=== PATIENT | male | born 1970 | race Caucasian/White ===

== ENCOUNTER 2024-02-01 04:10 | Emergency (ER) | payer BC ==
--- OUTSIDE RECORDS SUMMARY | 2024-02-01 04:13 | XMS REPORT | Continuity of Care Document ---
Author Name Unknown Address [address] [facility] [address] [place] [address] [facility] thconnect Address [address] [facility] [place] [address] Care Team Providers Care Machine Deburrer Name Role Phone Ayde ZULUAGA, Jessica Cardenas Primary Care Physician Matt Trivedi Attending Clinician Unavailable Cisco Attending Clinician Unavailtalya Gillespie Attending Clinician Unavail able Doctor Unassigned, [place] Attending Clinician U phil Fonseca MD, Jessica Cardenas Attending Clinician + [phone] Itz SCOTT, Hemalatha Shah Attending Clinician UnavailJESSICA Lott III Attending Clinician UnavailJESSICA Rodrigues Attending Clinician Alivia salgado Lab, [facility] Pob I Attending Clinician Michel Goss MD Attending Clinician [phone] Matt Trivedi Admitting Clinician Unavailable Cisco Admitting Clinician Corinne Gillespie Admitting Clinician Unavail able Payers Payer Name Policy Type Policy Number Effective Date Expirati on Date Source [place] [id number] 2020 00:00:00 Problems Condition Name Condition Details Condition Category Status Onset Date Resolution Date Last Treatment Date Treating Clinician Comments Source Disorder of shoulder Disorder of Shoulder Problem Active 2022-05 00:00: 00 [facility] Anterior to posterior tear of superior glenoid labrum of right shoulder Anterior to Posterior Tear of Superior Glenoid Labrum of Right Shoulder Problem Active 2022-05 00:00: 00 [facility] Pain of right shoulder joint Pain of Right Shoulder Joint Problem Active 2022-05 00:00: 00 [facility] Arthritis of right acromiocla vicular joint Arthritis of Right Acromiocla vicular Joint Problem Active 2022-05 00:00: 00 [facility] Essential hypertensi on Essential hypertensi on Disease Active 07-13 00:00: 00 [facility] Allergies, Adverse Reactions, Alerts Allergy Name Allergy Type Status Severity Reaction(s) Onset Date Inactive Date Treating Clinician Comments Source No Known Drug Allergie s DA Active U 2022-05 00:00: 00 [facility] NO KNOWN ALLERGIE S Drug Class Active [facility] Social History Social Habit Start Date Stop Date Quantity Comments Source History SDOH Alcohol Frequency [facility] History SDOH Alcohol Std Drinks [facility] Exposure to SARS-CoV-2 (event) Not sure [facility] History SDOH Alcohol Binge [facility] History of tobacco use Cigarette Smoker [facility] Alcohol intake 2020-04-09 00:00:00 2020-04-09 00:00:00 .86 /d [facility] Cigarettes smoked current (pack per day) - Reported 2016-07-13 00:00:00 2016-07-13 00:00:00 [facility] Tobacco use and exposure 2016-07-13 00:00:00 2016-07-13 00:00:00 Smokeless tobacco non-user [facility] Alcohol Comment 2016-07-13 00:00:00 2016-07-13 00:00:00 occ [facility] Sex Assigned At 1970 00:00:00 1970 00:00:00 [facility] Smoking Status Start Date Stop Date Source Former Smoker [facility] Smokes tobacco daily 2016-07-13 00:00:00 [facility] Medications Ordered Medication Name Filled Medication Name Start Date Stop Date Current Medication? Ordering Clinician Indication Dosage Frequency Signature (SIG) Comments Components Source benazepriL 40 mg tablet 06-16 00:00: 00 Yes [id number] 40mg Take 1 tablet by mouth in the morning. [facility] sildenafiL (VIAGRA) 100 mg tablet 06-27 00:00: 00 Yes [id number] 100mg Take 1 tablet by mouth as needed (take one hour prior to sexual acitivity prn). [facility] sildenafiL (VIAGRA) 100 mg tablet 2019-05 00:00: 00 06-27 00:00 :00 No [id number] 100mg Take 1 tablet by mouth as needed (take one hour prior to sexual acitivity prn). [facility] alprazolam 0.5 mg tablet TAKE ONE (1) TABLET(S) BY MOUTH ONCE A DAY NEEDED. alprazolam 0.5 mg tablet TAKE ONE (1) TABLET(S) BY MOUTH ONCE A DAY NEEDED. No alprazolam 0.5 mg tablet TAKE ONE (1) TABLET(S) BY MOUTH ONCE A DAY NEEDED. [facility] amlodipine 5 mg-benazepr il 40 mg capsule TAKE ONE (1) CAPSULE(S) BY MOUTH DAILY. amlodipine 5 mg-benazepr il 40 mg capsule TAKE ONE (1) CAPSULE(S) BY MOUTH DAILY. No amlodipine 5 mg-benazep ril 40 mg capsule TAKE ONE (1) CAPSULE(S) BY MOUTH DAILY. [facility] meloxicam 15 mg tablet TAKE ONE (1) TABLET(S) BY MOUTH DAILY IN THE MORNING. meloxicam 15 mg tablet TAKE ONE (1) TABLET(S) BY MOUTH DAILY IN THE MORNING. No meloxicam 15 mg tablet TAKE ONE (1) TABLET(S) BY MOUTH DAILY IN THE MORNING. [facility] metformin 500 mg tablet TAKE ONE (1) TABLET(S) BY MOUTH TWICE A DAY. metformin 500 mg tablet TAKE ONE (1) TABLET(S) BY MOUTH TWICE A DAY. No metformin 500 mg tablet TAKE ONE (1) TABLET(S) BY MOUTH TWICE A DAY. [facility] Ozempic 2 mg/dose (8 mg/3 mL) subcutaneou s pen injector INJECT TWO (2) MG SUBCUTANEOU SLY WEEKLY. Ozempic 2 mg/dose (8 mg/3 mL) subcutaneou s pen injector INJECT TWO (2) MG SUBCUTANEOU SLY WEEKLY. No Ozempic 2 mg/dose (8 mg/3 mL) subcutaneo us pen injector INJECT TWO (2) MG SUBCUTANEO USLY WEEKLY. [facility] sildenafil 50 mg tablet TAKE ONE (1) TABLET(S) BY MOUTH ONCE A DAY 30 MINUTES PRIOR TO ACTIVITY. sildenafil 50 mg tablet TAKE ONE (1) TABLET(S) BY MOUTH ONCE A DAY 30 MINUTES PRIOR TO ACTIVITY. No sildenafil 50 mg tablet TAKE ONE (1) TABLET(S) BY MOUTH ONCE A DAY 30 MINUTES PRIOR TO ACTIVITY. [facility] tizanidine 4 mg tablet TAKE ONE (1) TABLET(S) BY MOUTH AT BEDTIME NEEDED. tizanidine 4 mg tablet TAKE ONE (1) TABLET(S) BY MOUTH AT BEDTIME NEEDED. No tizanidine 4 mg tablet TAKE ONE (1) TABLET(S) BY MOUTH AT BEDTIME NEEDED. [facility] alprazolam 0.5 mg tablet TAKE ONE (1) TABLET(S) BY MOUTH ONCE A DAY NEEDED. alprazolam 0.5 mg tablet TAKE ONE (1) TABLET(S) BY MOUTH ONCE A DAY NEEDED. No alprazolam 0.5 mg tablet TAKE ONE (1) TABLET(S) BY MOUTH ONCE A DAY NEEDED. [facility] amlodipine 5 mg-benazepr il 40 mg capsule TAKE ONE (1) CAPSULE(S) BY MOUTH DAILY. amlodipine 5 mg-benazepr il 40 mg capsule TAKE ONE (1) CAPSULE(S) BY MOUTH DAILY. No amlodipine 5 mg-benazep ril 40 mg capsule TAKE ONE (1) CAPSULE(S) BY MOUTH DAILY. [facility] ketorolac 10 mg tablet TAKE ONE (1) TABLET(S) BY MOUTH EVERY 6 HOURS. ketorolac 10 mg tablet TAKE ONE (1) TABLET(S) BY MOUTH EVERY 6 HOURS. No ketorolac 10 mg tablet TAKE ONE (1) TABLET(S) BY MOUTH EVERY 6 HOURS. [facility] meloxicam 15 mg tablet TAKE ONE (1) TABLET(S) BY MOUTH DAILY IN THE MORNING. meloxicam 15 mg tablet TAKE ONE (1) TABLET(S) BY MOUTH DAILY IN THE MORNING. No meloxicam 15 mg tablet TAKE ONE (1) TABLET(S) BY MOUTH DAILY IN THE MORNING. [facility] metformin 500 mg tablet TAKE ONE (1) TABLET(S) BY MOUTH TWICE A DAY. metformin 500 mg tablet TAKE ONE (1) TABLET(S) BY MOUTH TWICE A DAY. No metformin 500 mg tablet TAKE ONE (1) TABLET(S) BY MOUTH TWICE A DAY. [facility] Ozempic 2 mg/dose (8 mg/3 mL) subcutaneou s pen injector INJECT TWO (2) MG SUBCUTANEOU SLY WEEKLY. Ozempic 2 mg/dose (8 mg/3 mL) subcutaneou s pen injector INJECT TWO (2) MG SUBCUTANEOU SLY WEEKLY. No Ozempic 2 mg/dose (8 mg/3 mL) subcutaneo us pen injector INJECT TWO (2) MG SUBCUTANEO USLY WEEKLY. [facility] promethazin e 25 mg tablet TAKE ONE (1) TABLET(S) BY MOUTH EVERY 6-8 HOURS NEEDED FOR NAUSEA AND VOMITING. promethazin e 25 mg tablet TAKE ONE (1) TABLET(S) BY MOUTH EVERY 6-8 HOURS NEEDED FOR NAUSEA AND VOMITING. No promethazi ne 25 mg tablet TAKE ONE (1) TABLET(S) BY MOUTH EVERY 6-8 HOURS NEEDED FOR NAUSEA AND VOMITING. [facility] sildenafil 50 mg tablet TAKE ONE (1) TABLET(S) BY MOUTH ONCE A DAY 30 MINUTES PRIOR TO ACTIVITY. sildenafil 50 mg tablet TAKE ONE (1) TABLET(S) BY MOUTH ONCE A DAY 30 MINUTES PRIOR TO ACTIVITY. No sildenafil 50 mg tablet TAKE ONE (1) TABLET(S) BY MOUTH ONCE A DAY 30 MINUTES PRIOR TO ACTIVITY. [facility] tizanidine 4 mg tablet TAKE ONE (1) TABLET(S) BY MOUTH EVERY 8 HOURS NEEDED FOR MUSCLE SPASMS. tizanidine 4 mg tablet TAKE ONE (1) TABLET(S) BY MOUTH EVERY 8 HOURS NEEDED FOR MUSCLE SPASMS. No tizanidine 4 mg tablet TAKE ONE (1) TABLET(S) BY MOUTH EVERY 8 HOURS NEEDED FOR MUSCLE SPASMS. [facility] tramadol 37.5 mg-acetamin ophen 325 mg tablet TAKE ONE (1) TABLET BY MOUTH EVERY 4-6 HOURS NEEDED FOR PAIN. tramadol 37.5 mg-acetamin ophen 325 mg tablet TAKE ONE (1) TABLET BY MOUTH EVERY 4-6 HOURS NEEDED FOR PAIN. No tramadol 37.5 mg-acetami nophen 325 mg tablet TAKE ONE (1) TABLET BY MOUTH EVERY 4-6 HOURS NEEDED FOR PAIN. [facility] alprazolam 0.5 mg tablet TAKE ONE (1) TABLET(S) BY MOUTH ONCE A DAY NEEDED. alprazolam 0.5 mg tablet TAKE ONE (1) TABLET(S) BY MOUTH ONCE A DAY NEEDED. No alprazolam 0.5 mg tablet TAKE ONE (1) TABLET(S) BY MOUTH ONCE A DAY NEEDED. [facility] amlodipine 5 mg-benazepr il 40 mg capsule TAKE ONE (1) CAPSULE(S) BY MOUTH DAILY. amlodipine 5 mg-benazepr il 40 mg capsule TAKE ONE (1) CAPSULE(S) BY MOUTH DAILY. No amlodipine 5 mg-benazep ril 40 mg capsule TAKE ONE (1) CAPSULE(S) BY MOUTH DAILY. [facility] ketorolac 10 mg tablet TAKE ONE (1) TABLET(S) BY MOUTH EVERY 6 HOURS. ketorolac 10 mg tablet TAKE ONE (1) TABLET(S) BY MOUTH EVERY 6 HOURS. No ketorolac 10 mg tablet TAKE ONE (1) TABLET(S) BY MOUTH EVERY 6 HOURS. [facility] meloxicam 15 mg tablet TAKE ONE (1) TABLET(S) BY MOUTH DAILY IN THE MORNING. meloxicam 15 mg tablet TAKE ONE (1) TABLET(S) BY MOUTH DAILY IN THE MORNING. No meloxicam 15 mg tablet TAKE ONE (1) TABLET(S) BY MOUTH DAILY IN THE MORNING. [facility] metformin 500 mg tablet TAKE ONE (1) TABLET(S) BY MOUTH TWICE A DAY. metformin 500 mg tablet TAKE ONE (1) TABLET(S) BY MOUTH TWICE A DAY. No metformin 500 mg tablet TAKE ONE (1) TABLET(S) BY MOUTH TWICE A DAY. [facility] Ozempic 2 mg/dose (8 mg/3 mL) subcutaneou s pen injector INJECT TWO (2) MG SUBCUTANEOU SLY WEEKLY. Ozempic 2 mg/dose (8 mg/3 mL) subcutaneou s pen injector INJECT TWO (2) MG SUBCUTANEOU SLY WEEKLY. No Ozempic 2 mg/dose (8 mg/3 mL) subcutaneo us pen injector INJECT TWO (2) MG SUBCUTANEO USLY WEEKLY. [facility] promethazin e 25 mg tablet TAKE ONE (1) TABLET(S) BY MOUTH EVERY 6-8 HOURS NEEDED FOR NAUSEA AND VOMITING. promethazin e 25 mg tablet TAKE ONE (1) TABLET(S) BY MOUTH EVERY 6-8 HOURS NEEDED FOR NAUSEA AND VOMITING. No promethazi ne 25 mg tablet TAKE ONE (1) TABLET(S) BY MOUTH EVERY 6-8 HOURS NEEDED FOR NAUSEA AND VOMITING. [facility] sildenafil 50 mg tablet TAKE ONE (1) TABLET(S) BY MOUTH ONCE A DAY 30 MINUTES PRIOR TO ACTIVITY. sildenafil 50 mg tablet TAKE ONE (1) TABLET(S) BY MOUTH ONCE A DAY 30 MINUTES PRIOR TO ACTIVITY. No sildenafil 50 mg tablet TAKE ONE (1) TABLET(S) BY MOUTH ONCE A DAY 30 MINUTES PRIOR TO ACTIVITY. [facility] tizanidine 4 mg tablet TAKE ONE (1) TABLET(S) BY MOUTH EVERY 8 HOURS NEEDED FOR MUSCLE SPASMS. tizanidine 4 mg tablet TAKE ONE (1) TABLET(S) BY MOUTH EVERY 8 HOURS NEEDED FOR MUSCLE SPASMS. No tizanidine 4 mg tablet TAKE ONE (1) TABLET(S) BY MOUTH EVERY 8 HOURS NEEDED FOR MUSCLE SPASMS. [facility] tramadol 37.5 mg-acetamin ophen 325 mg tablet TAKE ONE (1) TABLET BY MOUTH EVERY 4-6 HOURS NEEDED FOR PAIN. tramadol 37.5 mg-acetamin ophen 325 mg tablet TAKE ONE (1) TABLET BY MOUTH EVERY 4-6 HOURS NEEDED FOR PAIN. No tramadol 37.5 mg-acetami nophen 325 mg tablet TAKE ONE (1) TABLET BY MOUTH EVERY 4-6 HOURS NEEDED FOR PAIN. [facility] Vital Signs Vital Name Observation Time Observation Value Comments S ource Height 2023-05-06 00:00:00 [facility] BMI (Body Mass Index) 2023-05-06 00:00:00 33.8 kg/m2 [facility] Body Weight 2023-05-06 00:00:00 242 [lb_av] [facility] Height 2023-04-08 00:00:00 71 [in_i] [facility] BMI (Body Mass Index) 2023-04-08 00:00:00 33.8 kg/m2 [facility] Body Weight 2023-04-08 00:00:00 242 [lb_av] [facility] Systolic blood pressure 2021-06-27 19:47:00 121 mm[Hg] [facility] Diastolic blood pressure 2021-06-27 19:47:00 86 mm[Hg] [facility] Heart rate 2021-06-27 19:47:00 83 /min [facility] Body height 2021-06-27 19:47:00 180.3 cm [facility] Body weight 2021-06-27 19:47:00 118.842 kg [facility] BMI 2021-06-27 19:47:00 36.54 kg/m2 [facility] Procedures Procedure Date / Time Performed Performing Clinician Source XR, shoulder, 1 view 2023-03-26 00:00:00 [facility] MRI, shoulder, w/o contrast 2023-03-26 00:00:00 [facility] EXTERNAL PROVIDER RECORDS 2022-11-24 05:01:00 Doctor Unassigned, [place] [facility] Colonoscopy 2022-10-20 00:00:00 [facility] Elbow Surgery [facility] Tonsillectomy [facility] Encounters Start Date/Time End Date/Time Encounter Type Admission Type Attending [facility] Care Department Encounter ID Source 2023-06-02 00:00:00 2023-06-02 00:00:00 Matt Trivedi MD: [address] [place] [address] , Ph. [phone] [facility] [place] [facility] [place] [id number] [facility] 2023-05-06 00:00:00 2023-05-06 00:00:00 Matt Trivedi MD: [address] [place] [address] , Ph. [phone] [facility] [place] [facility] [place] [id number] [facility] 2023-04-29 07:28:00 2023-04-29 07:28:00 Outpatient Matt Gonzalez [facility] [id number] [facility] 2023-04-26 00:00:00 2023-04-26 00:00:00 Outpatient NORIS_Sammy Negron AO AO [id number] [facility] 2023-04-26 00:00:00 2023-04-26 00:00:00 Outpatient NORIS_Sammy Negron AO AO [id number] [facility] 2023-04-26 00:00:00 2023-04-26 00:00:00 Outpatient FOG_Sammy Negron AO AO [id number] [facility] 2023-04-26 00:00:00 2023-04-26 00:00:00 Outpatient NORIS_Sammy Negron AO AO [id number] [facility] 2023-04-12 00:00:00 2023-04-12 00:00:00 Outpatient FOG_Sammy Negron [facility] AO [id number] [facility] 2023-04-08 00:00:00 2023-04-08 00:00:00 Outpatient FOG_Sammy Negron [facility] AO [id number] [facility] 2023-04-08 00:00:00 2023-04-08 00:00:00 Matt Trivedi MD: [address] [place] [address] , Ph. [phone] [facility] [place] [facility] [place] [id number] [facility] 2023-03-26 00:00:00 2023-03-26 00:00:00 Outpatient FOG_Sammy Negron [facility] AO [id number] [facility] 2023-03-26 00:00:00 2023-03-26 00:00:00 Matt Trivedi MD: [address] [place] [address] , Ph. [phone] [facility] [place] [facility] [place] [id number] [facility] 2023-03-25 00:00:00 2023-03-25 00:00:00 Outpatient FOG_Sammy Negron [facility] AO [id number] [facility] 2023-03-17 00:00:00 2023-03-17 00:00:00 Outpatient FOG_Mehlhof Winston [facility] AO [id number] [facility] 2023-03-17 00:00:00 2023-03-17 00:00:00 Outpatient FOG_Mehlhof Winston [facility] AO [id number] [facility] 2022-11-24 00:00:00 2022-11-24 00:00:00 Orders Only Doctor Unassigned, [place] [facility] [id number] 350.1.13.10 4.2.7.2.686 [id number] [facility] 2022-06-14 00:00:00 2022-06-14 00:00:00 Telephone Jessica Fonseca [facility] ILYA?HEIKETalya [facility] [id number] 350.1.13.10 4.2.7.2.686 [id number] [facility] 2022-01-06 00:00:00 2022-01-06 00:00:00 Refill Ayde [facility] ILYA?HEIKETalya [facility] [id number] 350.1.13.10 4.2.7.2.686 [id number] [facility] 2021-12-01 00:00:00 2021-12-01 00:00:00 Refill Ayde [facility] ILYA?[place] [facility] OFF[facility] BUILD[facility] [id number] 350.1.13.10 4.2.7.2.686 [id number] [facility] 2021-07-27 00:00:00 2021-07-27 00:00:00 Telephone Hemalatha Mobley [facility] 1.2.840.114 350.1.13.10 4.2.7.2.686 [id number] [facility] 2021-07-26 13:00:00 2021-07-26 13:27:42 Outpatient Madiha MUHAMMAD III [facility] [id number] [facility] 2021-07-18 00:00:00 2021-07-18 00:00:00 Refill Ayde [facility] 1.840.114 350.1.13.10 4.2.7.2.686 [id number] [facility] 2021-07-16 00:00:00 2021-07-16 00:00:00 Refill Jessica Fonseca [facility] ILYA?[facility] 1.840.114 350.1.13.10 4.2.7.2.686 [id number] [facility] 2021-07-02 07:30:00 2021-07-02 07:30:00 Outpatient JESSICA OMALLEY [facility] [id number] [facility] 2021-06-27 13:15:00 2021-06-27 13:30:00 Office Visit Ayde [facility] OFFICE BUILDING 1.840.114 350.1.13.10 4.2.7.2.686 [id number] [facility] 2021-06-27 13:15:00 2021-06-27 13:15:00 Outpatient JESSICA OMALLEY [facility] [id number] [facility] 2021-06-27 00:00:00 2021-06-27 00:00:00 Orders Only Doctor Unassigned, [place] [facility] 1.84.114 350.1.13.10 4.2.7.2.686 [id number] [facility] 2021-06-17 00:00:00 2021-06-17 00:00:00 Refill Jessica Fonseca [facility] MARTINA [facility] OFFICE BUILDING ONE 1.84.114 350.1.13.10 4.2.7.2.686 [id number] [facility] 2021-06-16 00:00:00 2021-06-16 00:00:00 RefJessica Tsai [facility] OFFICE BUILDING ONE 1.2840.114 350.1.13.10 4.2.7.2.686 [id number] [facility] 2021-05-19 00:00:00 2021-05-19 00:00:00 Sreekanthleslie Ayde [facility] OFFICE BUILDING ONE 1.2840.114 350.1.13.10 4.2.7.2.686 [id number] [facility] 2021-05-12 00:00:00 2021-05-12 00:00:00 Damon Ayde [facility] OFFICE BUILDING ONE 1.2840.114 350.1.13.10 4.2.7.2.686 [id number] [facility] 2021-02-18 00:00:00 2021-02-18 00:00:00 Damon Machoricciluis [facility] Office Building One 1.840.114 350.1.13.10 4.2.7.2.686 [id number] [facility] 2021-01-22 00:00:00 2021-01-22 00:00:00 Damon Fonseca [facility] Office Building One 1.2840.114 350.1.13.10 4.2.7.2.686 [id number] [facility] 2020-10-22 08:00:00 2020-10-22 08:00:00 JESSICA Cowart [facility] [id number] [facility] 2020-10-15 00:00:00 2020-10-15 00:00:00 Damon Fonseca [facility] Office Building One 1.84.114 350.1.13.10 4.2.7.2.686 [id number] [facility] 2020-04-09 12:59:03 2020-04-09 13:14:03 Office Visit Ayde [facility] Office Building One 1.114 350.1.13.10 4.2.7.2.686 [id number] [facility] 2020-04-09 13:00:00 2020-04-09 13:00:00 Outpatient R JESSICA FONSECA [facility] [id number] [facility] 2020-03-14 08:17:24 2020-03-14 08:37:24 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 350.1.13.10 4.2.7.2.686 [id number] [facility] 2020-03-14 08:20:00 2020-03-14 08:20:00 Outpatient R [facility] [id number] [facility] 2020-03-12 14:10:02 2020-03-12 14:40:02 Office Visit Jessica Fonseca [facility] Office Building One .114 350.1.13.10 4.2.7.2.686 [id number] [facility] 2020-03-12 14:30:00 2020-03-12 14:30:00 Outpatient R JESSICA FONSECA [facility] [id number] [facility] 2020-03-12 00:00:00 2020-03-12 00:00:00 Letter (Out) Doctor Unassigned, [place] [facility] 1.114 350.1.13.10 4.2.7.2.686 [id number] [facility] 2019-12-11 00:00:00 2019-12-11 00:00:00 Refill Jessica Fonseca [facility] Office Building One 1.2.840.114 350.1.13.10 4.2.7.2.686 [id number] [facility] 2019-11-29 00:00:00 2019-11-29 00:00:00 Refill Jessica Fonseca [facility] Office Building One 1.2.840.114 350.1.13.10 4.2.7.2.686 [id number] [facility] 2019-01-19 00:00:00 2019-01-19 00:00:00 Michel Edge [facility] Office Building One 1.2.840.114 350.1.13.10 4.2.7.2.686 [id number] [facility] Results Test Description Test Time Test Comments Results Result Co mments Source Notes Date/Time Note Provider Source 2023-04-29 11:33:00 [id number] [place] [address] PATIENT NAME: DIONE DAWSON ADMIT DATE: 04/29/23 ACCOUNT NO: [id number] ROOM NO: AGE: 53 REPORT TYPE: OPERATIVE REPORT SEX: M ADMITTING PHYSICIAN: ATTENDING PHYSICIAN:Matt Trivedi MD OPERATION DATE: 04/29/2023 PREOPERATIVE DIAGNOSIS: 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 OTHER DIAGNOSIS NOTED: Partial thickness articular surface tear, supraspinatus tendon. OPERATIVE PROCEDURES PERFORMED: 1. Right shoulder diagnostic arthroscopy with an arthroscopic subacromial decompression, 45148. 2. Arthroscopic distal clavicle resection, 47494. 3. Arthroscopic debridement, 01744. ANESTHESIA: General. ESTIMATED BLOOD LOSS: None. SURGEON: Matt Trivedi M.D. [place] ATTENDANT: Maksymowski, OPA/LSA. OPERATIVE FINDINGS: As above. SURGICAL SPECIMENS SENT: None. CLINICAL INDICATIONS: Mr. Dawson is a 53-year-old male from [place], [place], who has been having chronic and progressive pain involving his right shoulder for the past several months. Pain is currently awakens him at night. Pain is not abated despite nonoperative treatment. Due to his progressive disability and lack of response to nonoperative treatment, he is admitted for arthroscopic decompression, distal clavicular resection and debridement. OPERATIVE NARRATIVE: 1. RIGHT SHOULDER DIAGNOSTIC ARTHROSCOPY WITH AN ARTHROSCOPIC SUBACROMIAL DECOMPRESSION, 85097. 2. ARTHROSCOPIC DISTAL CLAVICLE RESECTION, 38060. 3. ARTHROSCOPIC DEBRIDEMENT, 19867. PATIENT NAME: DIONE DAWSON PROCEDURE IN DETAIL: Mr. Dawson was brought to the operative suite at which time he was placed in a supine position on the OR table. Routine monitors were established. General anesthesia was delivered. After satisfactory induction of general anesthesia, the patient was placed in a semi-Lindsay position per Mr. London and the right shoulder was circumferentially prepped and draped in the usual sterile fashion per Mr. London. Posterior arthroscopic portal was established. Systematic intra-articular evaluation performed. Glenohumeral evaluation revealed a type 1 labral tear. Anterior inferior portal was established. Debridement was performed. Bicipital tendon was intact. Axillary recess unremarkable. Posterior labrum unremarkable. Subscapularis tendon was intact. Partial thickness tear involving the articular surface of the supraspinatus tendon was present. Less than 10% of the tendon debridement was performed. The arthroscope was then placed in subacromial space, type 2 acromion was noted. CA ligament released. Anterior inferior acromioplasty was performed. The distal 10 mm of the clavicle were then resected. A complete bursectomy was performed. No bursal lesions of the cuff were present. Thorough lavage was performed with lactated Ringer solution. Arthroscopic portals were closed respectively with a 4-0 nylon suture per Mr. London. Subacromial injection performed by Mr. London. Sterile dressing was applied by Mr. London. Mr. Dawson was then extubated, taken to recovery room awake and alert without any anesthetic or operative complications. At the end of the case, sponge and needle counts were correct x2. During the procedure, Mr. London was invaluable in positioning the patient along with preparation and draping of the extremity. He was also vital for providing surgical exposure throughout the procedure in addition to closure of the postoperative incisions, postoperative anesthetic injection and application of postoperative dressing. Dictated By: Matt Trivedi MD Date Dictated: 04/29/2023 11:33:50 Date Transcribed: 04/29/2023 11:58:25 RLB/KEIRY Receipt ID: [id number] Authenticated by Matt Trivedi MD On 04/29/2023 12:16:08 PM at 1216 PATIENT NAME: DIONE DAWSON [facility] 2023-04-29 06:14:00 [facility] Brief Op Note REPORT#:[id number] REPORT STATUS: Signed REPORT INITIALIZATION DATE:04/29/23 TIME: 613 PATIENT: DIONE DAWSON UNIT #: [id number] ROOM/BED: : 72 AGE: 53 SEX: M ATTEND: Matt Trivedi MD ADM AUTHOR: Yesenia De Los Santos REPT SERVICE DT/TIME: 04/29/23613 * ALL edits or amendments must be made on the electronic/computer document * Op/Inv Proc Note - Brief Pre-procedure diagnosis: Right shoulder labral tear, chronic impingement and AC joint arthritis Post-procedure diagnosis: same as pre procedure dx Procedures performed: Right Shoulder arthroscopy, subacromial decompression, distal clavicle resection and debridement Primary Surgeon: Farooq Donor Relations Manager(s): Surya LSA Findings: as above Complications: none Estimated blood loss in ml's: none Specimens removed/altered: none at 1215 at 1540 RPT #:[id number] END OF REPORT [facility] 2023-04-28 11:46:00 [id number] [id number] PATIENT NAME: DIONE DAWSON ADMIT DATE: ACCOUNT NO: [id number] ROOM NO: AGE: 53 REPORT TYPE: HISTORY AND PHYSICAL SEX: M ADMITTING PHYSICIAN: ATTENDING PHYSICIAN:Matt Trivedi MD ADMISSION DATE: 04/29/2023 00:00:00 ADMITTING DIAGNOSIS: 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 HISTORY OF PRESENT ILLNESS: Mr. Dawson is a 53-year-old male who has been having progressive pain in his right shoulder for the past several months. The pain awakens him at night. The pain interferes with daily activities. His clinical as well as radiographic evaluation revealed stage III impingement, AC arthritis as well as a degenerative labral tear. Due to his progressive disability and lack of response to nonoperative intervention, he is admitted for arthroscopic decompression, distal clavicular resection and debridement. PAST MEDICAL HISTORY: Anxiety, diabetes, hypertension. PAST SURGICAL HISTORY: Include elbow surgery, tonsillectomy. FAMILY HISTORY: Hypertension, carcinoma. SOCIAL HISTORY: He is a former smoker. He drinks occasionally. ALLERGIES: NO ALLERGIES ARE LISTED. MEDICATIONS: Alprazolam, amlodipine, metformin. REVIEW OF SYSTEMS: Negative. PHYSICAL EXAMINATION: VITAL SIGNS: A 5 feet 11 inches tall, 109.7 kg. HEENT: Within normal limits. CARDIAC: Regular rate and rhythm. No murmur. CHEST: Clear. ABDOMEN: Benign. BACK: No CVA tenderness. MUSCULOSKELETAL: Cervical spine is unremarkable. Examination of the right shoulder demonstrates positive arc of impingement, positive crossover test, positive clunk test. No instability. No weakness. Distal neurovascular status is intact. DIAGNOSTIC DATA: Radiographic evaluation reveals a type 2 acromion with significant AC arthritis. MRI evaluation reveals impingement with AC arthropathy and a prominent labral tear with an associated paralabral cyst. PATIENT NAME: DIONE DAWSON ASSESSMENT: Right shoulder pain secondary to stage III impingement, acromioclavicular arthropathy and degenerative labral tearing. SURGICAL PLAN: Diagnostic arthroscopy, decompression, distal clavicular resection, and debridement. I have gone over at length with the patient the associated risks involved with this procedure. He understands that these include but not limited to bleeding, infection, neurovascular damage, persistent pain, loss of motion, need for further operative intervention along with complications secondary to anesthesia. Furthermore, he understands that there are no guarantees or warranties that he will be pain free as a result of the procedure. He accepts these risks and gives his informed consent to proceed. Dictated By: Matt Trivedi MD Date Dictated: 04/28/2023 11:46:30 Date Transcribed: 04/28/2023 11:57:42 FLAVIO/BRITNEY/PAM Receipt ID: [id number] Authenticated by Matt Trivedi MD On 04/29/2023 06:03:57 AM at 0603 PATIENT NAME: DIONE DAWSON [facility]
[2024-02-01 04:51] LABS: PT Prothrombin Time 12.1 SECONDS (9.4-12.5); Protime INR 1.08
[2024-02-01 04:52] LABS: Absolute Eosinophils 0.5 K/uL (0-0.5); Absolute Lymphocytes (CBC) 2.5 K/uL (0.7-4.9); Absolute Monocytes 0.5 K/uL (0.1-1.3); Basophils % 0.5 % (0-1.3); Eosinophils % 7.2 % (0-4.4); Hematocrit 43.3 % (39.6-49.0); Hemoglobin 14.7 g/dL (13.6-17.9); Lymphocytes % 38.5 % (15.3-44.8); MCH 31.2 pg (27.0-35.0); MCV 91.7 fL (80-100); MPV 8.1 fL (7.6-11.3); Monocytes % 7.6 % (3.3-12.3); Neutrophils % 46.2 % (41.7-73.7); Nucleated Red Blood Cells % 0.1 % (0-0); Platelets 225 thou/uL (152-406); RBC Red Blood Cell Count 4.72 M/uL (4.33-5.43); Red Cell Distribution Width 13.2 % (12.1-15.2)
[2024-02-01 05:03] LABS: Anion Gap 6.9 mEq/L (5.0-15.0); Potassium 3.9 mEq/L (3.5-5.1); Troponin High Sensitivity 4.8 pg/mL (<58.9)
--- NOTE | 2024-02-01 06:05 | EDPHYS ---
Physician Documentation [facility] Name: Trevor Palomares III Age: 54 yrs Sex: Male : 1970 Arrival Date: 02/01/2024 Time: 04:10 Bed 5 Private MD: ED Physician Adan Huertas HPI: 01/31 04:30 This 54 yrs old Male presents to ER via Ambulatory with complaints of High ec2 Blood Pressure, Dizziness. 04:30 Patient arrives today for evaluation of intermittent dizziness ongoing for the past ec2 several days. Patient reports dizziness is described as a room spinning sensation. Patient reports no chest pain or difficulty breathing. States that he checked his blood pressure and noted that it was also elevated. No vomiting, no diarrhea, no recent illnesses. History of hypertension. No history of ACS, no history of stroke. Historical: - Allergies: 04:21 No Known Allergies; al5 - PMHx: 04:21 Diabetes mellitus; Hypertensive disorder; al5 - PSHx: 04:21 Tonsillectomy; elbow surgery L; al5 - Immunization history:: Adult Immunizations up to date. - Infectious Disease History:: Denies. - Social history:: Smoking status: Reported history of juuling and/or vaping. ROS: 04:30 Constitutional: as per hpi ec2 Exam: 04:23 ECG was reviewed by the Attending Physician. ec2 04:30 Constitutional: GEN: NAD Head: atraumatic Eyes: EOMI Ears: External ears are ec2 normal. CV: regular rate LUNGS: no respiratory distress ABD: non-distended SKIN: no evidence of rashes MSK: no evidence of trauma. Neuro: Cranial nerves II through XII intact, strength intact all 4 extremities, no pronator drift, normal [id number]. Vital Signs: 04:19 BP 153 / 104; Pulse 64; Resp 18; Temp 98.2; Pulse Ox 98% on R/A; Weight 99.79 kg; al5 Height 5 ft. 11 in. ; Pain 0/10; 05:29 BP 143 / 91; Pulse 59; Resp 17; Temp 98.2; Pulse Ox 100% on R/A; Pain 0/10; bm8 06:12 BP 140 / 91; Pulse 61; Resp 17; Temp 98.2; Pulse Ox 100% ; Pain 0/10; bm8 04:19 Body Mass Index 30.68 (99.79 kg, 180.34 cm) al5 04:19 Pain Scale: Adult al5 05:29 Pain Scale: Adult bm8 06:12 Pain Scale: Adult bm8 Eyota Coma Score: 04:23 Eye Response: spontaneous(4). Motor Response: obeys commands(6). Verbal Response: bm8 oriented(5). Total: 15. 05:29 Eye Response: spontaneous(4). Motor Response: obeys commands(6). Verbal Response: bm8 oriented(5). Total: 15. 06:12 Eye Response: spontaneous(4). Motor Response: obeys commands(6). Verbal Response: bm8 oriented(5). Total: 15. MDM: 04:12 Patient medically screened. ec2 04:23 ED course: EKG independently reviewed and interpreted by me, shows normal sinus rhythm, ec2 rate of 63, no acute ST segment elevations, intervals are nonconcerning.. 04:30 Data reviewed: vital signs. ED course: Patient arrives today for evaluation of ec2 dizziness. Examination remarkable for neuro intact individuals otherwise in no acute distress with a reassuring examination. Will obtain lab work, CT imaging, and further assess. Differential includes intracranial mass, arterial pathology, electrolyte disturbances.. 05:08 ED course: Metabolic profile reassuring, CBC reassuring, troponin within normal ranges. ec2 . 06:02 ED course: CT head, CT angio head and neck showed no acute pathology. My suspicion for ec2 acute stroke is lower, do not feel patient would benefit from inpatient hospitalization and MR testing. Suspect peripheral vertigo. This to be more consistent given the patient's intermittent symptoms. Will treat with meclizine.. 01/31 04:18 Order name: Basic Metabolic Panel; Complete Time: 05:08 ec2 01/31 04:18 Order name: CBC with Diff; Complete Time: 05:08 ec2 01/31 04:18 Order name: PT-INR; Complete Time: 05:08 ec2 01/31 04:18 Order name: Troponin HS; Complete Time: 05:08 ec2 01/31 04:18 Order name: XRAY Chest (1 view) ec2 01/31 04:33 Order name: CT Head Brain wo Cont ec2 01/31 04:33 Order name: CT Neck Angio ec2 01/31 05:00 Order name: Head angio EDMS 01/31 04:18 Order name: EKG; Complete Time: 04:19 ec2 01/31 04:18 Order name: Cardiac monitoring; Complete Time: 04:23 ec2 01/31 04:18 Order name: EKG - Nurse/Tech; Complete Time: 04:23 ec2 01/31 04:18 Order name: IV Saline Lock; Complete Time: 04:23 ec2 01/31 04:18 Order name: Labs collected and sent; Complete Time: 04:23 ec2 01/31 04:18 Order name: O2 Per Protocol; Complete Time: 04:23 ec2 01/31 04:18 Order name: O2 Sat Monitoring; Complete Time: 04:23 ec2 Administered Medications: No medications were administered Disposition Summary: 02/01/24 06:05 Discharge Ordered Notes: Location: Home ec2 Condition: Stable ec2 Diagnosis - Other peripheral vertigo ec2 Followup: ec2 - With: Private Physician - When: - Reason: Re-evaluation by your physician Discharge Instructions: - Discharge Summary Sheet ec2 - Vertigo, Fhnk-aa-Axny ec2 Forms: - Medication Reconciliation Form ec2 - Antibiotic Education ec2 - Prescription Opioid Use ec2 - Patient Portal Instructions ec2 - Leadership Thank You Letter ec2 - Work release form bm8 Prescriptions: - Meclizine 25 mg Oral Tablet - take 1 tablet ORAL route every 8 hours As needed; 30 tablet; Refills: 0, ec2 Product Selection Permitted Signatures: [facility] Adan Nieto MD MD ec2 Shyanne Dias RN RN al5
--- NOTE | 2024-02-01 06:05 | ER ---
Nurse's Notes [facility] Name: Trevor Palomares III Age: 54 yrs Sex: Male : 1970 Arrival Date: 02/01/2024 Time: 04:10 Bed 5 Private MD: Diagnosis: Other peripheral vertigo Presentation: 01/31 04:19 Chief complaint: Patient states: c/o intermittent dizziness and high blood pressure al5 starting last night. states he woke up this morning and it was 173/100. states currently not experiencing dizziness at this time. hx of htn. denies cp, sob, n/v/d. Coronavirus screen: At this time, the client does not indicate any symptoms associated with coronavirus-19. Ebola Screen: No symptoms or risks identified at this time. Initial Sepsis Screen: Does the patient meet any 2 criteria? No. Patient's initial sepsis screen is negative. Does the patient have a suspected source of infection? No. Patient's initial sepsis screen is negative. Risk Assessment: Do you want to hurt yourself or someone else? Patient reports no desire to harm self or others. Onset of symptoms was January 31, 2024. 04:19 Method Of Arrival: Ambulatory al5 04:19 Acuity: RUTH 3 al5 Triage Assessment: 04:22 General: Appears in no apparent distress. Behavior is calm, cooperative. Pain: Denies al5 pain. EENT: No signs and/or symptoms were reported regarding the EENT system. Neuro: Level of Consciousness is awake, alert, obeys commands, Oriented to person, place, time, situation, Reports dizziness. Cardiovascular: Reports high blood pressure Capillary refill < 3 seconds Patient's skin is warm and dry. Respiratory: Airway is patent Respiratory effort is even, unlabored, Respiratory pattern is regular, symmetrical. GI: No signs and/or symptoms were reported involving the gastrointestinal system. : No signs and/or symptoms were reported regarding the genitourinary system. Derm: Skin is intact, Skin is pink, warm \T\ dry. normal. Musculoskeletal: No signs and/or symptoms reported regarding the musculoskeletal system. Historical: - Allergies: 04:21 No Known Allergies; al5 - PMHx: 04:21 Diabetes mellitus; Hypertensive disorder; al5 - PSHx: 04:21 Tonsillectomy; elbow surgery L; al5 - Immunization history:: Adult Immunizations up to date. - Infectious Disease History:: Denies. - Social history:: Smoking status: Reported history of juuling and/or vaping. Screenin:23 [facility] ED Fall Risk Assessment (Adult) History of falling in the last 3 months, bm8 including since admission No falls in past 3 months (0 pts) Confusion or Disorientation No (0 pts) Intoxicated or Sedated No (0 pts) Impaired Gait No (0 pts) Mobility Assist Device Used No (0 pt) Altered Elimination No (0 pt) Score/Fall Risk Level 0 - 2 = Low Risk Oriented to surroundings, Maintained a safe environment, Educated pt \T\ family on fall prevention, incl call for assistance when getting out of bed, Assessed \T\ reinforced patient's understanding of fall precautions, Hourly rounding (assess needs \T\ fall precautionary measures) done, Used ambulatory aids as needed (educated on \T\ assisted with), Used gait belt as appropriate. Abuse screen: Denies threats or abuse. Nutritional screening: No deficits noted. Tuberculosis screening: No symptoms or risk factors identified. 04:24 [facility] ED Fall Risk Assessment (Adult) History of falling in the last 3 months, al5 including since admission No falls in past 3 months (0 pts) Confusion or Disorientation No (0 pts) Intoxicated or Sedated No (0 pts) Impaired Gait No (0 pts) Mobility Assist Device Used No (0 pt) Altered Elimination No (0 pt) Score/Fall Risk Level 0 - 2 = Low Risk Oriented to surroundings, Maintained a safe environment, Hourly rounding (assess needs \T\ fall precautionary measures) done. Abuse screen: Denies threats or abuse. Denies injuries from another. Nutritional screening: No deficits noted. Tuberculosis screening: No symptoms or risk factors identified. Assessment: 04:23 Reassessment: see triage assessment. al5 05:29 General: Appears in no apparent distress. comfortable, Behavior is calm, cooperative, bm8 appropriate for age. Pain: Denies pain. Neuro: No deficits noted. Level of Consciousness is awake, alert, obeys commands, Oriented to person, place, time, situation, Appropriate for age. Cardiovascular: Denies chest pain, lightheadedness, shortness of breath, Heart tones S1 S2 present Capillary refill < 3 seconds in bilateral fingers toes Patient's skin is warm and dry. Respiratory: Airway is patent Respiratory effort is even, unlabored, Respiratory pattern is regular, symmetrical. GI: No signs and/or symptoms were reported involving the gastrointestinal system. : No signs and/or symptoms were reported regarding the genitourinary system. EENT: No signs and/or symptoms were reported regarding the EENT system. Derm: No signs and/or symptoms reported regarding the dermatologic system. Musculoskeletal: No signs and/or symptoms reported regarding the musculoskeletal system. 06:12 Reassessment: Patient appears in no apparent distress at this time. Patient and/or bm8 family updated on plan of care and expected duration. Pain level reassessed. Patient is alert, oriented x 3, equal unlabored respirations, skin warm/dry/pink. Patient denies pain at this time. Patient states feeling better. Patient states symptoms have improved. Vital Signs: 04:19 BP 153 / 104; Pulse 64; Resp 18; Temp 98.2; Pulse Ox 98% on R/A; Weight 99.79 kg; al5 Height 5 ft. 11 in. ; Pain 0/10; 05:29 BP 143 / 91; Pulse 59; Resp 17; Temp 98.2; Pulse Ox 100% on R/A; Pain 0/10; bm8 06:12 BP 140 / 91; Pulse 61; Resp 17; Temp 98.2; Pulse Ox 100% ; Pain 0/10; bm8 04:19 Body Mass Index 30.68 (99.79 kg, 180.34 cm) al5 04:19 Pain Scale: Adult al5 05:29 Pain Scale: Adult bm8 06:12 Pain Scale: Adult bm8 Meg Coma Score: 04:23 Eye Response: spontaneous(4). Motor Response: obeys commands(6). Verbal Response: bm8 oriented(5). Total: 15. 05:29 Eye Response: spontaneous(4). Motor Response: obeys commands(6). Verbal Response: bm8 oriented(5). Total: 15. 06:12 Eye Response: spontaneous(4). Motor Response: obeys commands(6). Verbal Response: bm8 oriented(5). Total: 15. ED Course: 04:12 Patient arrived in ED. ec2 04:12 Adan Huertas MD is Attending Physician. ec2 04:21 Triage completed. al5 04:23 Truong Gilbert, RN is Primary Nurse. bm8 04:23 Arm band placed on right wrist. Patient placed in the treatment room, on a stretcher. al5 04:23 Patient has correct armband on for positive identification. Bed in low position. Call bm8 light in reach. Side rails up X 1. Adult w/ patient. Client placed on continuous cardiac and pulse oximetry monitoring. NIBP monitoring applied. ekg monitor on. Pulse ox on. NIBP on. Door closed. Noise minimized. Warm blanket given. Pillow given. Verbal reassurance given. Head of bed elevated. 04:23 Initial lab(s) drawn, by ED staff, sent to lab. EKG done, by ED staff, reviewed by bm8 Adan Huertas MD. Inserted saline lock: 20 gauge in right antecubital area, using aseptic technique. Blood collected. Patient maintains SpO2 saturation greater than 95% on room air. 04:24 Patient has correct armband on for positive identification. Bed in low position. Call al5 light in reach. Side rails up X 1. Provided Education on: processes and procedures. 04:24 No provider procedures requiring assistance completed. al5 04:32 Basic Metabolic Panel Sent. oe 04:32 CBC with Diff Sent. oe 04:32 PT-INR Sent. oe 04:32 Troponin HS Sent. oe 04:47 XRAY Chest (1 view) In Process Unspecified. EDMS 05:23 CT Head Brain wo Cont In Process Unspecified. EDMS 05:23 CT Neck Angio In Process Unspecified. EDMS 05:24 Head angio In Process Unspecified. EDMS 06:12 IV discontinued, intact, bleeding controlled, No redness/swelling at site. Pressure bm8 dressing applied. Administered Medications: No medications were administered Medication: 04:23 VIS not applicable for this client. al5 Outcome: 06:05 Discharge ordered by . ec2 06:12 Discharged to home ambulatory, with family, bm8 06:12 Condition: stable 06:12 Discharge instructions given to patient, family, Instructed on discharge instructions, follow up and referral plans. no drinking with medication, no driving heavy equipment, medication usage, safety practices, Demonstrated understanding of instructions, follow-up care, medications, Prescriptions given X 1, 06:15 Patient left the ED. bm8 Signatures: Dispatcher [employer] EDMS Hari Vallejo Edwin, MD MD ec2 Truong Gilbert, RN RN bm8 Shyanne Dias, SONIA RN al5
[2024-02-01 06:22] VITALS: TEMP 98.2
[2024-02-01 06:23] VITALS: O2SAT 100
[2024-02-01 06:25] VITALS: BP 140/91
--- NOTE | 2024-02-01 09:46 | RAD REPORT ---
EXAM DESCRIPTION: CT - Neck Angio - 02/01/2024 7:[address] Angiography Head and Neck With Intravenous Contrast CLINICAL HISTORY: The patient is 54 years old and is Male; Dizziness. TECHNIQUE: [employer]/head and neck CT angiography protocol performed with intravenous contras t. Sagittal and coronal reformatted images were created and reviewed. This CT exam was performed using one or more of the following dose reduction techniques: automated exposure control, adjustmen t of the mA and/or kV according to patient size, and/or use of iterative reconstruction technique. MIP reconstructed images were created and reviewed. COMPARISON: None. FINDINGS: HEAD: RIGHT ANTERIOR CEREBRAL ARTERY: Unremarkable No occlusion or significant stenosis. Anterior com municating artery is present. No aneurysm. RIGHT MIDDLE CEREBRAL ARTERY: Unremarkable No occlusion or significant stenosis. No aneurysm. RIGHT POSTERIOR CEREBRAL ARTERY: Unremarkable No occlusion or significant stenosis. No aneurysm . RIGHT INTRACRANIAL INTERNAL CAROTID ARTERY: Unremarkable No significant stenosis. No dissection or occlusion. RIGHT INTRACRANIAL VERTEBRAL ARTERY: Unremarkable No significant stenosis. No dissection or occ lusion. LEFT ANTERIOR CEREBRAL ARTERY: Unremarkable No occlusion or significant stenosis. No aneurysm. LEFT MIDDLE CEREBRAL ARTERY: Unremarkable No occlusion or significant stenosis. No aneurysm. LEFT POSTERIOR CEREBRAL ARTERY: Unremarkable No occlusion or significant stenosis. No aneurysm. LEFT INTRACRANIAL INTERNAL CAROTID ARTERY: Unremarkable No significant stenosis. No dissection or occlusion. LEFT INTRACRANIAL VERTEBRAL ARTERY: Unremarkable No significant stenosis. No dissection or occl usion. BASILAR ARTERY: Unremarkable No occlusion or significant stenosis. No aneurysm. OTHER VASCULATURE: No vascular malformation. BRAIN AND EXTRA-AXIAL SPACES: No evidence of acute infarct. Posterior fossa structures are unrema rkable. Ventricles are appropriate for age. No hydrocephalus. Basal cisterns are patent. No extra-axial fluid collection. No intracranial hemorrhage. No midline shift. No transtentorial herniation. No focal rudolph-white matter differentiation abnormality. SINUSES: Partial opacification of bilateral ethmoid air cells. Mild right maxillary and sphenoid sinus mucosal thickening. NECK: RIGHT COMMON CAROTID ARTERY: Unremarkable No significant stenosis. No dissection or occlusion. RIGHT EXTRACRANIAL INTERNAL CAROTID ARTERY: Mild stenosis of the origin of the right ICA secondary to calcified plaque. No dissection or occlusion. RIGHT EXTERNAL CAROTID ARTERY: Unremarkable No occlusion. RIGHT EXTRACRANIAL VERTEBRAL ARTERY: Unremarkable No significant stenosis. No dissection or occ lusion. LEFT COMMON CAROTID ARTERY: Unremarkable No significant stenosis. No dissection or occlusion. LEFT EXTRACRANIAL INTERNAL CAROTID ARTERY: Unremarkable No significant stenosis. No dissection or occlusion. LEFT EXTERNAL CAROTID ARTERY: Unremarkable No occlusion. LEFT EXTRACRANIAL VERTEBRAL ARTERY: Unremarkable No significant stenosis. No dissection or occl usion. AORTA: The aortic arch and origins of the supraaortic arteries are not included on the provided gabo ges. LUNG APICES: Large periapical lucency demonstrated about the left maxillary 1st molar. HEAD and NECK: BONES/JOINTS: Unremarkable No discrete lytic or blastic abnormalities. No fracture of the calvarium or visualized facial bones. SOFT TISSUES: Unremarkable CAROTID STENOSIS REFERENCE USING NASCET CRITERIA: % ICA stenosis = (1 - narrowest ICA diameter/diameter of distal cervical ICA) x 100. Mild - <50% stenosis. Moderate - 50-69% stenosis. Severe - 70-94% stenosis. Near occlusion - 95-99% stenosis. Occluded - 100% stenosis. IMPRESSION: 1. No acute intracranial abnormality. No occlusion, high-grade stenosis, or acute abno rmality of the cervical or central intracranial arteries, allowing for nonvisualization of the aortic arch and origins of the supraaortic arteries. 2. Mild stenosis of the origin of the right ICA secondary to calcified plaque. 3. Large periapical lucency demonstrated about the left maxillary 1st molar. Nonemergent dental fernando luation recommended. 4. Bilateral paranasal sinus disease as above. Electronically signed by: Gibson Aleman MD 02/01/2024 05:53 AM CDT RP Due to temporary technical issues with the PACS/Fluency reporting system, reports are being signed by the in house radiologists without review as a courtesy to insure prompt reporting. The interpreting radiologist is fully responsible for the content of the report.
--- NOTE | 2024-02-01 12:34 | EKG ---
Test Date: 2024-02-01 Test Time: 04:21:49 Calibration Technician: JUNAID MEASUREMENT RESULTS: Intervals: Rate: 63 WI: 160 QRSD: 88 QT: 406 QTc: [address]: P: 70 WI: 160 QRS: 60 T: 47 INTERPRETIVE STATEMENTS: Normal sinus rhythm with sinus arrhythmia Normal ECG No previous ECG available for comparison Electronically Signed On 02-01-24 12:33:32 CDT by Mike Jerez
--- NOTE | 2024-02-01 13:04 | RAD REPORT ---
EXAM DESCRIPTION: RAD - Chest Single View - 02/01/2024 4:45 am XR Chest, 1 View CLINICAL HISTORY: The patient is 54 years old and is Male; Cough. TECHNIQUE: Frontal view of the chest. COMPARISON: None. FINDINGS: LUNGS: Relatively low lung volumes bilaterally. Allowing for this and patient positionin g, no focal consolidation. PLEURAL SPACE: No appreciable pleural effusion or pneumothorax. MEDIASTINUM: Unremarkable cardiomediastinal contour. BONES/JOINTS: No acute osseous abnormality. IMPRESSION: Low lung volumes with no acute cardiopulmonary abnormality. Electronically signed by: Gibson Aleman MD 02/01/2024 05:22 AM CDT RP Due to temporary technical issues with the PACS/Fluency reporting system, reports are being signed by the in house radiologists without review as a courtesy to insure prompt reporting. The interpreting radiologist is fully responsible for the content of the report.
== END 2024-02-01 06:15 | disposition home or self-care (01) ==
LOC: ER 04:10
DX: H81.399 Other peripheral vertigo, unspecified ear (principal); I10 Essential (primary) hypertension
CPT/HCPCS: 93005; 85025; 80048; 36415; 85610; 84484; 70450; 70496; 70498; 71045; 99284; Q9967